=== PATIENT | male | born 1995 | race Caucasian/White ===

== ENCOUNTER 2017-11-12 21:37 | Emergency (ER) | payer BC ==
[~2017-11-12] VITALS: Ht 180.3 cm; Wt 74.8 kg
[~2017-11-12 21:37] MED LIST: CONCERTA54 MG PO; MELATONIN1 MG PO; PERCOCET 7.5-31 EACH PO
== END 2017-11-12 22:26 | disposition home or self-care (01) ==
LOC: ED 21:37
DX: R11.10 Vomiting, unspecified (principal); F17.200 Nicotine dependence, unspecified, uncomplicated; Z88.0 Allergy status to penicillin
CPT/HCPCS: 99282

== ENCOUNTER 2018-01-20 19:39 | Emergency (ER) | payer BC ==
[~2018-01-20] VITALS: Ht 180.3 cm; Wt 90.7 kg
[2018-01-20] MEDS ORDERED: ACETAMINOPHEN500 MG PO (19:55)
== END 2018-01-20 20:31 | disposition home or self-care (01) ==
LOC: ED 19:39
DX: S46.312A Strain of muscle, fascia and tendon of triceps, left arm, initial encounter (principal); S46.212A Strain of muscle, fascia and tendon of other parts of biceps, left arm, initial encounter; X50.0XXA Overexertion from strenuous movement or load, initial encounter; Y99.0 Civilian activity done for income or pay; F17.200 Nicotine dependence, unspecified, uncomplicated; Z88.0 Allergy status to penicillin; Z88.8 Allergy status to other drugs, medicaments and biological substances
CPT/HCPCS: 99283

== ENCOUNTER 2018-01-26 06:17 | Emergency (ER) | payer BC ==
[~2018-01-26] VITALS: Ht 180.3 cm; Wt 90.7 kg
[~2018-01-26 06:17] MED LIST changes: +ACETAMINOPHEN500 MG PO
== END 2018-01-26 06:40 | disposition home or self-care (01) ==
LOC: ED 06:17
DX: S46.212D Strain of muscle, fascia and tendon of other parts of biceps, left arm, subsequent encounter (principal); F17.200 Nicotine dependence, unspecified, uncomplicated; Z88.0 Allergy status to penicillin; Z88.6 Allergy status to analgesic agent; X58.XXXD Exposure to other specified factors, subsequent encounter
CPT/HCPCS: 99282